=== PATIENT | male | born 1980 | race Caucasian/White ===

== ENCOUNTER 2022-04-10 10:04 | Emergency (ER) | payer OTHER ==
[2022-04-10 10:15] VITALS: BMI 37.5
[2022-04-10 10:38] LABS: BASO % 0.3 % (0-2.0); EOS % 1.1 % (0-4.5); HEMATOCRIT 44.7 % (35.4-49); HEMOGLOBIN 14.9 GM/dL (11.7-16.9); LYMPH % 9.5 % (8-40); MCHC 33.3 g/dl (32.0-35.9); MEAN CELL VOLUME 78.2 fl (80-96); MEAN PLT VOLUME 9.1 fl (7.5-11.1); MONO % 5.4 % (3.8-10.2); NEUT % 83.7 % (42.8-82.8); PLATELET COUNT 325 10^3/uL (134-434); RBC 5.72 M/mm3 (4.00-5.60); WHITE BLOOD COUNT 11.3 K/mm3 (4.0-10.0)
[2022-04-10] MEDS ORDERED: NITROGLYCERIN SUBLINGUAL 1/150 0.4 MG TAB SL ONE (10:42)
[2022-04-10] MEDS ORDERED: ASPIRIN 81 MG CHEWABLE TABLETS PO ONE (10:43)
[2022-04-10] MEDS ORDERED: MAGNESIUM SULF 50% (8.12 MEQ/2 ML-1 GM VIAL) IVPB ONE (10:44)
[2022-04-10 10:47] LABS: INR 1.11 (0.83-1.09); PROTHROMBIN TIME (PATIENT) 12.9 SEC (9.7-13.0)
[2022-04-10] MEDS ORDERED: NITROGLYCERIN SUBLINGUAL 1/150 0.4 MG TAB ONE (10:47)
[2022-04-10] MEDS ORDERED: ASPIRIN 325 MG TABLET ONE (10:47)
[2022-04-10] MEDS ORDERED: MAGNESIUM SULFATE IN WATER 2 GM/50 ML IVPB IVPB ONE (10:48)
[2022-04-10] MEDS ORDERED: morphine CARPU-JECT 4 MG/1 ML DISP.SYRIN IVPUSH ONE ×2 (10:52→10:55)
[2022-04-10 11:05] LABS: CHLORIDE 100 mmol/L (98-107); SODIUM 139 mmol/L (136-145)
[2022-04-10 11:07] LABS: ALBUMIN 3.2 g/dl (3.4-5.0); BLOOD UREA NITROGEN 50.8 mg/dL (7-18); CALCIUM 8.4 mg/dL (8.5-10.1); CO2 30 mmol/L (21-32); GLUCOSE,RANDOM 103 mg/dL (74-106)
[2022-04-10 11:10] LABS: CREATININE 3.7 mg/dL (0.55-1.3); SGPT/ALT 83 U/L (13-61)
[2022-04-10 11:11] VITALS: BP 157/129; RESP 22
[2022-04-10 11:11] LABS: SGOT/AST 49 U/L (15-37)
[2022-04-10 11:12] LABS: BILIRUBIN,TOTAL 0.5 mg/dL (0.2-1); TOT PROT 6.8 g/dl (6.4-8.2)
[2022-04-10 11:13] LABS: ALK PHOS 92 U/L (45-117)
[2022-04-10 11:14] VITALS: PULSE 94; TEMP 98.3
[2022-04-10 11:45] LABS: ANION GAP 9 MMOL/L (8-16)
[2022-04-10 12:23] LABS: MAGNESIUM 2.2 mg/dL (1.8-2.4)
[2022-04-10 12:27] LABS: PHOSPHOROUS 3.6 mg/dL (2.5-4.9)
== END 2022-04-10 11:36 | disposition short-term general hospital (02) ==
LOC: JER 10:04
PROC: 3E033GC Introduction of Other Therapeutic Substance into Peripheral Vein, Percutaneous Approach (ICD-10-PCS; principal; 2022-04-10)
PROC: 3E033GC Introduction of Other Therapeutic Substance into Peripheral Vein, Percutaneous Approach (ICD-10-PCS; 2022-04-10)
DX: I21.9 Acute myocardial infarction, unspecified (principal); I16.1 Hypertensive emergency; R77.8 Other specified abnormalities of plasma proteins; Z20.822 Contact with and (suspected) exposure to COVID-19
CPT/HCPCS: 0241U-QW; 36415; 80053; 82550; 82553; 83735; 84100; 84484; 85025; 85610; 93005; 93010; 99285-25

== ENCOUNTER 2024-10-11 08:48 | Emergency (ER) | payer OTHER ==
[2024-10-11 09:16] VITALS: RESP 18; TEMP 98.3; BMI 34.4
[2024-10-11 10:19] LABS: ABSOLUTE IMMATURE GRANULOCYTES 0.07 x10^3/uL (0.0-0.031); BASOPHILS # 0.04 x10^3/uL (0.01-0.08); EOSINOPHIL % 1.4 % (0.8-7.0); EOSINOPHILS # 0.18 x10^3/uL (0.04-0.54); MCHC 33.8 g/dl (32.3-36.5); MEAN CELL VOLUME 82.7 fl (79.0-92.2); MEAN PLT VOLUME 11.0 fl (9.4-12.4); MONOCYTE # 0.51 x10^3/uL (0.30-0.82); MONOCYTE % 3.9 % (5.3-12.2); RDW 13.7 % (12.1-15.9)
[2024-10-11 10:29] LABS: INR 1.02 (0.83-1.09); PROTHROMBIN TIME (PATIENT) 11.2 SEC (9.7-13.0)
[2024-10-11 10:31] LABS: ACTIVATED PTT 26.5 SECONDS (25.2-36.5)
[2024-10-11] MEDS ORDERED: ASPIRIN 81 MG CHEWABLE TABLETS ONE (10:36)
[2024-10-11] MEDS ORDERED: LABETALOL HCL 20 MG/4 ML VIAL ONE ×3 (10:37→13:37)
[2024-10-11] MEDS: ASPIRIN 81 MG CHEWABLE TABLETS PO ONE (10:50)
[2024-10-11] MEDS ORDERED: ALBUTEROL SULFATE 0.021% (0.63 MG/3 ML) VIAL.NEB NEB ONE (11:03)
[2024-10-11 11:18] LABS: GLUCOSE,RANDOM 109 mg/dL (74-106)
[2024-10-11 11:19] LABS: TOT PROT 6.7 g/dl (6.4-8.2)
[2024-10-11 11:20] LABS: CO2 16 mmol/L (21-32)
[2024-10-11] MEDS: LABETALOL HCL 20 MG/4 ML VIAL IVPUSH ONE ×2 (11:20→13:11)
[2024-10-11 11:22] LABS: ALK PHOS 78 U/L (40-150)
[2024-10-11] MEDS ORDERED: ACETAMINOPHEN INJECTION 100 ML ONE (11:22)
[2024-10-11 11:24] LABS: SGOT/AST 44 U/L (5-34); SGPT/ALT 32 U/L (0-55)
[2024-10-11 11:25] LABS: CREATININE 9.46 mg/dL (0.55-1.3)
[2024-10-11] MEDS ORDERED: ALBUTEROL SO4 0.083% IH SOL 2.5 MG/3 ML VIAL.NEB. NEB ONE (11:32)
[2024-10-11] MEDS: ALBUTEROL SO4 0.083% IH SOL 2.5 MG/3 ML VIAL.NEB. NEB ONE (11:47)
[2024-10-11] MEDS: ACETAMINOPHEN 1000 MG/100 ML BAG IVPB ONE (11:48)
[2024-10-11] MEDS ORDERED: MAGNESIUM 1GM/D5W - 1 GM/100 ML IVPB IVPB ONE (12:14)
[2024-10-11] MEDS: MAGNESIUM 1GM/D5W - 1 GM/100 ML IVPB IVPB ONE (12:33)
[2024-10-11] MEDS: LABETALOL HCL 20 MG/4 ML VIAL IVPB ONE (13:47)
[2024-10-11 13:55] VITALS: BP 157/115
[2024-10-11 13:57] VITALS: PULSE 75
[2024-10-11 20:09] LABS: HCV DIAGNOSTIC IN-HOUSE W/RFLX NON-REACTIVE (NONREACTIVE)
[2024-10-11 21:39] LABS: HIV INTERPRETATION NEGATIVE (NEGATIVE)
== END 2024-10-11 13:25 | disposition short-term general hospital (02) ==
LOC: JER 08:48
PROC: 3E033GC Introduction of Other Therapeutic Substance into Peripheral Vein, Percutaneous Approach (ICD-10-PCS; principal; 2024-10-11)
PROC: 3E033NZ Introduction of Analgesics, Hypnotics, Sedatives into Peripheral Vein, Percutaneous Approach (ICD-10-PCS; 2024-10-11)
PROC: 3E033GC Introduction of Other Therapeutic Substance into Peripheral Vein, Percutaneous Approach (ICD-10-PCS; 2024-10-11)
PROC: 3E033GC Introduction of Other Therapeutic Substance into Peripheral Vein, Percutaneous Approach (ICD-10-PCS; 2024-10-11)
PROC: 3E033GC Introduction of Other Therapeutic Substance into Peripheral Vein, Percutaneous Approach (ICD-10-PCS; 2024-10-11)
PROC: 3E0F7GC Introduction of Other Therapeutic Substance into Respiratory Tract, Via Natural or Artificial Opening (ICD-10-PCS; 2024-10-11)
DX: I61.9 Nontraumatic intracerebral hemorrhage, unspecified (principal); I21.4 Non-ST elevation (NSTEMI) myocardial infarction; I10 Essential (primary) hypertension; R06.02 Shortness of breath; M79.601 Pain in right arm; R05.9 Cough, unspecified; R20.0 Anesthesia of skin
CPT/HCPCS: 36415; 70450-TC; 70496-TC; 70498-TC; 71045-TC-FY; 71250-TC; 80053; 82962; 83735; 84484; 85025; 85610; 85730; 86803; 87389; 87637-QW; 93005; 93010; 99285-25